=== PATIENT | female | born 1995 | race Caucasian/White ===

== ENCOUNTER → 2020-10-03 11:20 | Outpatient (BNVA) | payer MEDICAID, SELFPAY | PROVIDERS: Visit Provider Nurse Practitioner Family | DX: Z20.828 Contact with and (suspected) exposure to other viral communicable diseases (principal) | CPT/HCPCS: 87635 ==

== ENCOUNTER 2020-10-07 07:25 | Outpatient (CLI) | payer MEDICAID, SELFPAY ==
[2020-10-07] VITALS (8 sets, daily range): BP systolic 109–131; BP diastolic 59–74; PULSE 84–97; RESP 20; TEMP 36.8; BMI 53.4
[2020-10-07 08:46] LABS: Basophils % 0.2 %; Eosinophils # 0.1 10^3/uL (0.0-0.8); Eosinophils % 0.8 %; Hematocrit 37.2 % (37.0-47.0); Hemoglobin 11.8 g/dL (11.5-15.3); Lymphocytes # 1.7 10^3/uL (0.8-4.8); Lymphocytes % 14.9 %; Mean Corpuscular HGB Conc 31.7 g/dL (30.0-36.0); Mean Corpuscular Hemoglobin 28.9 pg (28.0-34.0); Mean Platelet Volume 10.7 fL (7.4-10.4); Monocytes # 0.7 10^3/uL (0.2-0.9); Monocytes % 6.3 %; Neutrophils # 8.63 10^3/uL (1.8-7.7); Neutrophils % 75.9 %; Nucleated Red Blood Cells % 0 %; Platelet Count 219 10^3/cmm (130-400); Red Blood Count 4.09 10^6/uL (4.1-5.3); Red Cell Distribution Width 14.6 % (12.1-15.1); White Blood Count 11.4 10^3/uL (4.0-10.0)
--- NOTE | 2020-10-07 08:58 | PC.NURSE ---
IV STARTED INN RIGHT HAND 2ND ATTEMPT, UNABLE TO DRAW BLOOD OFF SITE BUT IT FLUSHED GOOD SO IT WAS LEFT AND LABS DRAWN OFF RIGHT AC SPACE.
[2020-10-07 09:01] LABS: Alanine Aminotransferase 9 U/L (0-33); Albumin Level 3.2 g/dL (3.5-5.2); Alkaline Phosphatase 90 IU/L (35-105); Anion Gap 14.6 (5-19); Aspartate Amino Transferase 13 U/L (0-32); Blood Urea Nitrogen 7 mg/dL (6-20); Calcium 9.1 mg/dL (8.5-10.5); Carbon Dioxide 23 mmol/L (22-29); Chloride 101 mmol/L (98-107); Globulin 3.1 g/dL (1.3-4.6); Glomerular Filtration Rate 197.8 mL/min (90-130); Glucose 116 mg/dL (65-115); Osmolality Calculated 279 mOsm/kg (285-295); Potassium 3.6 mmol/L (3.5-5.1); Sodium 135 mmol/L (136-145); Total Bilirubin 0.3 mg/dL (0.15-1.2); Total Protein 6.3 g/dL (6.6-8.7)
[2020-10-07 09:02] LABS: Amphetamines Screen Urine Negative (Negative); Barbiturates Screen Urine Negative (Negative); Benzodiazepines Screen Urine Negative (Negative); Blood Urine Neg (Negative); Cocaine Screen Urine Negative (Negative); Glucose Urine UA Norm (Normal); Ketones Urine 1+ (Negative); Nitrate Urine Negative (Negative); Opiate Screen Urine Negative (Negative); PCP Screen Urine Negative (Negative); Protein Urine Trace (Negative); THC Screen Urine Negative (Negative); Urine Appearance SL Hazy (CLEAR); Urine Color Dark Yellow (Yellow); pH Urine 5 (5-7)
[2020-10-07 09:03] LABS: Add Urine Microscopic? YES; Bilirubin Urine 1+ (Negative); Leukocyte Esterase Urine Trace (Negative); Urobilinogen Urine 1 mg/dL (Negative)
[2020-10-07 09:04] LABS: Add Urine Culture? No; Bacteria Urine TRACE /hpf; Mucus Urine 3+ /hpf; Squamous Epithelial Cell Urine 0-4 /hpf (0-5)
[2020-10-07 09:06] LABS: Estmated Average Glucose 105; Hemoglobin A1C 5.3 % (4.0-6.0)
[2020-10-07 09:28] LABS: Urine Creatinine 312 mg/dL (28-217)
[2020-10-07 09:45] LABS: UPRO/UCREAT Ratio 0.13 mg/mg CR; Urine Protein Random 40 mg/dL
[2020-10-07 09:58] LABS: Glucose Point of Care 98 mg/dL (70-110)
[2020-10-07 10:46] LABS: Actim Prom Negative
--- NOTE | 2020-10-07 11:18 | PM.OBGYHP ---
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 Her care has been provided by Dr. Kd Maurice at [facility] in [place]. She presented to labor and delivery at 07:25 on 10/07/2020 with multiple complaints. She reported to the nursing staff that she was having severe headache, facial swelling, nausea, cough, and leaking fluid. The leaking of fluid had started approximately 2 days ago. At my evaluation, she reported the above listed symptoms. She stated that she had noticed a gush of fluid and then has had small gushes off and on with a damp feeling. She denied any vaginal itching or vaginal burning. She denied any urinary burning. She was reporting a stretching feeling whenever she urinated that has been present for a few days. She also reported having vomiting off and on throughout the , but vomited 1 time last night and was nauseated since. She states she took her prescribed Zofran last night and then fell asleep. Despite these above listed complaints, she reports that her main concern currently is that her back hurts all the time. She reported no fevers or chills. She denied vaginal bleeding. She reported having occasional contractions. She reported good movement. care has been provided by Dr. Kd Maurice at [facility] in [place]. Patient reports having problems with nausea and vomiting throughout the . She states she was diagnosed as a carrier of factor V Leiden mutation and is currently on Lovenox daily. She also reports being told that she might have gestational diabetes and has been checking her sugars at home. She reports that her after meal sugars range from 80s to 200s. She reported that she has an appointment tomorrow with her doctor. Review of Systems Const: Reports: fatigue; Denies: fever(s) or chills Eyes: Denies: change in vision ENMT: Denies: throat pain or nasal congestion Card: Reports: swelling of feet/ankles; Denies: chest pain, palpitations or lightheadedness Resp: Reports: non-productive cough; Denies: dyspnea, productive cough or wheezing GI: Reports: nausea and vomiting; Denies: abdominal pain, diarrhea or constipation : Reports: urinary frequency and vaginal discharge; Denies: dysuria, urinary urgency, genital pruritis or vaginal bleeding Musc: Reports: back pain Neuro: Reports: headache(s); Denies: dizziness or seizure-like activity Psych: Denies: anxiety or depression Yg/Lymph: Denies: easy bruising or easy bleeding Medications/Allergies Home Medications Medication Instructions Recorded Confirmed Last Taken Type Zofran PO TID PRN 10/07/20 1 Day Ago History ~10/06/20 enoxaparin [Lovenox] 40 mg SUBCUT DAILY 10/07/20 10/07/20 1 Day Ago History ~10/06/20 vit [id number] 1 tab PO DAILY 10/07/20 10/07/20 10/06/20 10:00 History [ Vitamin] Allergies Allergy/AdvReac Type Severity Reaction Status Date / Time atomoxetine [From Strattera] Allergy unknown Verified 10/03/20 10:43 methylphenidate Allergy Unknown Verified 10/03/20 10:43 [From Concerta] sulfamethoxazole Allergy Unknown Verified 10/03/20 10:44 [From Bactrim] trimethoprim [From Bactrim] Allergy Unknown Verified 10/03/20 10:44 PFSH 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 PFSH: Medical History (Updated 10/07/20 @ 11:56 by Karlos Kline MD) Factor 5 Leiden mutation, heterozygous History of venous thromboembolism Obesity Tobacco dependence Surgical History History of ankle surgery Hx of tonsillectomy Family History Mother Diabetes Stroke Chronic kidney disease (CKD) Father Hypertension Social History (Updated 10/07/20 @ 11:45 by Karlos Kline MD) Smoking and tobacco status: current every day smoker Alcohol intake: current Alcohol use comment: Not during Substance/Drug Use: unknown Housing: Other Details: [facility] History History History 5 Term 1 Miscarriages/Ectopic 3 0 Living Children 1 Care [place] Calculator Estimated Delivery Date Method Current WG Current Estimate 11/26/20 LMP (Certain) 32w 6d Specific Issues/Plans Factor V Leiden mutation with history of DVT. Obesity Abnormal glucose test Vitals/I&O/Wt Last Vital Signs Pulse 84 10/07/20 09:42 BP 123/63 10/07/20 09:42 Weight last 48 hrs Weight 302 lb Physical Exam Const: COMMON NORMALS: no acute distress, alert and well nourished GENERAL APPEARANCE: well developed NUTRITIONAL APPEARANCE: obese ORIENTATION/CONSCIOUSNESS: Yes oriented to person, Yes oriented to place and Yes oriented to time Neck/C-Spine: COMMON NORMALS: Thyroid normal GENERAL: Yes trachea midline THYROID: Thyroid normal Lymph: LYMPHATIC: no lymphadenopathy noted (Groin) Resp: COMMON NORMALS: normal respiratory effort and clear to auscultation bilaterally AUSCULTATION: clear to auscultation bilaterally Cardio: COMMON NORMALS: regular rate, regular rhythm, No gallops present (Cardio), No murmurs present (Cardio) and No rub (Cardio) RATE: regular rate RHYTHM: regular rhythm GI: COMMON NORMALS: Soft to palpation, non-tender, No hepatosplenomegaly present and no masses (Except for nontender gravid uterus) INSPECTION: Yes gravid abdomen AUSCULTATION: Yes normoactive bowel sounds PALPATION: Yes Soft to palpation, Yes No hepatosplenomegaly present and No Hernia present : EXTERNAL FEMALE EXAM: No Hernia present OTHER: External genitalia: Slight erythema. No lesions seen. Skin damp. Smell of sour urine noted. Anus/perineum: No perineal lesions noted. Urethral meatus: Normal in size and location with no lesions or prolapse noted Urethra: Nontender. Bladder: Nontender. Vagina: Normal in appearance. No discharge noted. No lesions seen. Negative pooling. Nitrazine positive. Fern test performed. Wet prep performed. Cervix: Normal in appearance. No lesions seen. No fluid seen leaking from cervix with cough. Visually closed. Gonorrhea and Chlamydia testing performed. Uterus: Gravid and nontender. Extremity: COMMON NORMALS: no calf tenderness NARRATIVE EXTREMITY EXAM: Trace lower extremity edema bilaterally Neuro: SENSORIUM/ORIENTATION: Yes alert, Yes oriented to person, Yes oriented to place and Yes oriented to time Psych: COMMON NORMALS: normal affect MOOD & AFFECT: Yes euthymic mood Skin: COMMON NORMALS: no rashes or lesions noted GENERAL SKIN EXAM: no rashes or lesions noted Data : 10/07/20 08:30 10/07/20 08:30 Other Labs: 10/07/2020: 08:30 Calcium 9.1, T bili 0.3, AST 13, ALT 9, alk phos 90, TP 6.3, Alb 3.2. Serum uric acid: 4.0 Nitrazine: Positive Fern test: Equivocal Wet prep: Negative for yeast, clue cells, trichomonas. Occasional WBCs present. ActinProm: Negative Urinalysis (catheterized): Specific gravity 1.030, protein trace, glucose negative, ketones 1+, blood negative, nitrate negative, leukocyte esterase trace. RBC: None, WBC 5-10, squamous cells 0-4, bacteria trace. Protein/Creatinine Ratio: 0.13 Urine drug screen: Negative PENDING TESTS Urine culture: Pending Gonorrhea and Chlamydia: Pending Other data: Monitoring: Baseline heart rate 125-130, moderate variability, accelerations present, reactive tracing. No decelerations. Category 1 tracing. No contractions. A&P Assessment and plan (1) Headache in : Patient complaining of headache with facial swelling and nausea. Blood pressure in labor and delivery was normal. Preeclamptic laboratory testing was performed. CBC was normal for with platelets of 219,000. Liver enzymes were normal. Serum uric acid was normal at 4.0. Urine protein/creatinine ratio was 0.13. Based upon these laboratory findings and the normal blood pressure, she does not have preeclampsia as a cause for her headache. I would recommend taking Tylenol as needed and increasing fluid intake. I would recommend that she follow-up with her doctor as scheduled tomorrow to see if he wishes any further evaluation. Status: Acute Qualifiers: Trimester: third trimester Qualified Code(s): O26.893 - Other specified related conditions, third trimester; R51.9 - Headache, unspecified (2) Vaginal discharge during in third trimester: Patient reporting possible leaking of fluid for the last 2 days. External genitalia was damp on exam with sour urine odor present. Sterile speculum exam revealed no pooling with no fluid leaking from cervix with cough. Nitrazine was positive. Fern testing was performed which was equivocal. ActinPROM was performed which was negative. Wet prep was performed which was negative for yeast, bacterial vaginosis, and trichomoniasis. Gonorrhea and Chlamydia testing was performed. Based upon testing, I do not believe that her water is broken at this time. However, if she continues to have concerns for possible leaking of fluid, she will need to be reevaluated. Based upon odor, I suspect she has been leaking urine. Status: Acute (3) Acute cystitis during in third trimester: Catheterized urine sample was obtained. Based upon UA, she may have a cystitis. She had 5-10 WBCs with trace bacteria. Urine culture has been ordered. Due to the increased risks associated with cystitis in if present, I am going ahead and treating with cephalexin 500 twice a day for 7 days while urine culture is pending. Status: Acute (4) Abnormal glucose tolerance test in : Patient reports abnormal glucose test. States has been checking sugars at home, but has not followed up with her doctor yet regarding sugar results. She was instructed to take her readings with her to her doctor's appointment tomorrow. Status: Acute (5) Heterozygous factor V Leiden affecting in third trimester, antepartum: Patient currently taking Lovenox prophylactically. Status: Acute (6) Nausea/vomiting in : Patient reported having nausea and vomiting yesterday, but states that that she has had problems with this through the and has Zofran prescription at home which she took. Status: Acute (7) 32 weeks gestation of : Status: Acute Additional A&P Information Patient is being discharged to home. She is to keep her next scheduled appointment, which is tomorrow, with her main OB doctor, Dr. Kd Maurice at [facility] in [place]. She was instructed to continue her home medications which include: Lovenox 40 mg daily vitamins daily Zofran as needed for nausea and vomiting She was given a prescription for: Cephalexin 500 mg, 1 twice a day for 7 days Attestations Medical Necessity Statement*: Patient being sent home after evaluation Coding Level of Care Code Acute Access Analyst for Misael Fwd Exam Comprehensive Diagnoses Headache in O26.893; R51.9 Trimester: third trimester Vaginal discharge during in third trimester O26.893; N89.8 Acute cystitis during in third trimester O23.13 Abnormal glucose tolerance test in O99.810 Heterozygous factor V Leiden affecting in third trimester, antepartum O99.113; D68.51 Nausea/vomiting in O21.9 32 weeks gestation of Z3A.32
== END 2020-10-07 11:15 | disposition home or self-care (01) ==
LOC: OPOB 07:34 → OBGYN 07:34
PROVIDERS: Obstetrics & Gynecology; Visit Provider Obstetrics & Gynecology
DX: O26.893 Other specified pregnancy related conditions, third trimester (principal); Z3A.32 32 weeks gestation of pregnancy; R51.9 Headache, unspecified; O23.13 Infections of bladder in pregnancy, third trimester; O99.810 Abnormal glucose complicating pregnancy; O99.113 Other diseases of the blood and blood-forming organs and certain disorders involving the immune mechanism complicating pregnancy, third trimester; D68.51 Activated protein C resistance; O21.9 Vomiting of pregnancy, unspecified
CPT/HCPCS: 12345; 36415; 36416; 59025; 80053; 80306; 81001; 82570; 82962; 83036; 83986; 84112; 84156; 84550; 85025; 87491; 87591; 99211

== ENCOUNTER → 2021-03-04 15:00 | Outpatient (BNVA) | payer MEDICAID, SELFPAY | PROVIDERS: PCP Family Medicine; Referring Provider Family Medicine; Visit Provider Specialist | DX: G56.01 Carpal tunnel syndrome, right upper limb (principal); F17.210 Nicotine dependence, cigarettes, uncomplicated | CPT/HCPCS: 95908 ==

== ENCOUNTER 2023-04-10 21:02 | Emergency (ER) | payer MEDICAID, SELFPAY ==
[2023-04-10 21:13] VITALS: BP 177/106; PULSE 104; RESP 16; TEMP 37.6; O2SAT 96; BMI 51.5
--- NOTE | 2023-04-10 23:06 | ED_ITS ---
HPI - Skin/Abscess/Foreign Bdy General: Chief complaint: Skin/Abscess/Foreign Body Stated complaint: Absess on Chest and Under Arms Time Seen by Provider: 04/10/23 23:01 History of Present Illness: Patient is a 27-year-old female who comes to the ED with possible infected bug bite on right breast. Patient says it started approximately 1 week ago. She had a small sore bump on the top of her right breast which she thinks was first bug bite. Over the last week it is gotten more painful red and swollen. The center area of bug bite has had a little bit of green and white purulent drainage. It is warm and tender to the touch. Denies any fevers or any other symptoms. Associated symptoms: Deny chills, fever(s), nausea or vomiting Review of Systems Const: Denies: fever(s), chills or fatigue Eyes: Denies: change in vision or eye discomfort ENMT: Denies: throat pain, odynophagia, nasal discharge or nasal congestion Card: Denies: chest pain, palpitations, edema, swelling of feet/ankles, dyspnea on exertion or orthopnea Resp: Denies: dyspnea, productive cough or non-productive cough GI: Denies: abdominal pain, nausea, vomiting, diarrhea, constipation or hematochezia : Denies: flank pain, dysuria or hematuria Musc: Denies: neck pain, back pain or extremity swelling Skin/Breast: Reports: new lesions (Bug bite on right breast); Denies: rash Neuro: Denies: headache(s), numbness in extremities or weakness in extremities PFS ED PFSH: Medical History (Updated 04/10/23 @ 23:11 by KAMI Garcia) Factor 5 Leiden mutation, heterozygous History of venous thromboembolism Obesity Tobacco dependence Surgical History History of ankle surgery Hx of tonsillectomy Family History Mother Diabetes Stroke Chronic kidney disease (CKD) Father Hypertension Social History (Updated 10/07/20 @ 11:45 by Karlos Kline MD) Smoking and tobacco status: current every day smoker Alcohol intake: current Substance/Drug Use: unknown Housing: Other Details: [facility] Female Reproductive History: Date of last menstrual period: 04/10/23 Physical Exam Const: COMMON NORMALS: no acute distress, patient oriented x3 and alert HENMT: COMMON NORMALS: normocephalic HEAD & SCALP: normocephalic MOUTH: Normal oral and palatal mucosa present THROAT: posterior oropharynx normal and uvula midline Neck/C-Spine: COMMON NORMALS: supple GENERAL: Yes normal visual inspection Chest: OTHER: On superior aspect of right breast. Patient has small bug bite appearing puncture wound with surrounding erythema and warmth. No visible purulent drainage seen. No palpable abscess present. Findings suggestive of developing cellulitis from a bug bite. Resp: COMMON NORMALS: normal respiratory effort, No retractions, No use of accessory muscles and clear to auscultation bilaterally AUSCULTATION: clear to auscultation bilaterally Cardio: COMMON NORMALS: regular rate, regular rhythm, S1 normal heart sound present, S2 normal heart sound present, No gallops present (Cardio), No clicks present (Cardio), No murmurs present (Cardio) and Peripheral pulses 2+ throughout RATE: regular rate RHYTHM: regular rhythm HEART SOUNDS: S1 normal heart sound present and S2 normal heart sound present PERIPHERAL PULSES: Peripheral pulses 2+ throughout GI: COMMON NORMALS: Normal to inspection, nondistended, normoactive bowel sounds present, Soft to palpation, non-tender and no masses PALPATION: Yes Soft to palpation : COMMON NORMALS: Yes no CVA tenderness BLADDER/KIDNEY EXAM: Yes no CVA tenderness Back/Pelvis: COMMON NORMALS: no CVA tenderness Extremity: COMMON NORMALS: normal to inspection Neuro: COMMON NORMALS: patient oriented x3 SENSORIUM/ORIENTATION: Yes alert GAIT: Yes Normal gait present Skin: GENERAL SKIN EXAM: dry skin Course Vital Signs: Vital signs: Vital Signs Temperature 99.7 F H 04/10/23 21:13 Pulse Rate 104 H 04/10/23 21:13 Respiratory Rate 16 04/10/23 21:13 Blood Pressure 177/106 04/10/23 21:13 Pulse Oximetry 96 04/10/23 21:13 Oxygen Delivery Me thod Room Air 04/10/23 21:13 MDM - Skin/Abscess/Foreign Bdy Medicial Decision Making Patient is a 27-year-old female who comes to the ED with possible infected bug bite on right breast. Patient says it started approximately 1 week ago. She had a small sore bump on the top of her right breast which she thinks was first bug bite. Over the last week it is gotten more painful red and swollen. The center area of bug bite has had a little bit of green and white purulent drainage. It is warm and tender to the touch. Denies any fevers or any other symptoms. Vitals are stable. Patient appears nontoxic in no acute distress. On superior aspect of right breast. Patient has small bug bite appearing puncture wound with surrounding erythema and warmth. No visible purulent drainage seen. No palpable abscess present. Findings suggestive of developing cellulitis from a bug bite. Patient was given dose of IM Rocephin here in the ED and diagnosed with infected bug bite. She was sent home with a prescription for Keflex. Told to follow-up with PCP within the next 3 to 5 days for reevaluation. Return to ED precautions given. Patient understood and agreed with plan. Discharge Plan Discharge Patient Disposition: Home Clinical Impression: Bug bite with infection Qualifiers: Encounter type: initial encounter Qualified Code(s): W57.XXXA - Bitten or stung by nonvenomous insect and other nonvenomous arthropods, initial encounter Condition: Stable Prescriptions: New cephalexin 500 mg capsule 500 mg PO Q6H 7 Days Qty: 28 0RF No Action amoxicillin 500 mg tablet 500 mg PO TID Qty: 15 0RF gabapentin 100 mg capsule 100 mg PO BID Qty: 28 0RF Vitamin 27 mg iron- 800 mcg Tablet 1 tab PO DAILY Discharge Orders: Discharge ED (Routine); Ordered 04/10/23 Ordered By: Jacob Garcia Referrals: Stephanie Goldstein MD [Primary Care Provider] - Discharge Diet: Regular Discharge Activity: Increase activity as tolerated Patient Instructions: Cellulitis (ED) Activity Restrictions/Additional Instructions: Follow-up with medical provider as directed in the next 3 to 4 days for reevaluation. take medications as prescribed. Return to the ER or your medic al provider if condition worsens. Please read and understand discharge instructions. Thank you for choosing [facility] for your healthcare needs today. Please realize this is an emergency room and that we are providing you with a medical screening exam and this may not be complete and all inclusive of all the testing and or work up that you may need to determine your ailment or severity o f your illness. It is very important that you follow up as instructed or that you return to the Emergency Department should you have concerns or if your condition changes or worsens in any way. Coding Level of Care Code ED Disaster Recovery Consultant for Misael Pastor
[2023-04-10] MEDS: cefTRIAXone 1,000 MG in water for injection-sterile 2.1 ML 1 MG IM (23:16)
== END 2023-04-10 23:54 | disposition home or self-care (01) ==
PROVIDERS: Emergency Provider Physician Assistant; PCP Family Medicine
DX: S20.161A Insect bite (nonvenomous) of breast, right breast, initial encounter (principal); L08.9 Local infection of the skin and subcutaneous tissue, unspecified; W57.XXXA Bitten or stung by nonvenomous insect and other nonvenomous arthropods, initial encounter; F17.210 Nicotine dependence, cigarettes, uncomplicated
CPT/HCPCS: 96372; 99284; J0696

== ENCOUNTER 2023-05-09 20:42 | Emergency (ER) | payer MEDICAID, SELFPAY ==
[2023-05-09 20:44] VITALS: BP 132/74; PULSE 102; RESP 22; TEMP 36.6; O2SAT 97; BMI 51.5
[2023-05-09 21:32] LABS: Hematocrit 42.2 % (37.0-47.0); Hemoglobin 13.5 g/dL (11.5-15.3)
--- NOTE | 2023-05-09 22:42 | ED_ITS ---
HPI - Female Genitourinary General: Chief complaint: Vaginal Bleeding Stated complaint: vaginal bleeding History of Present Illness: Patient is a 28-year-old female that presents for vaginal bleeding. She is a G7, P4 with 3 previous miscarriages. Patient states she had unprotected sex 7 weeks ago. She has not taken any home test. Her last documented menstrual period was 01/10/2023 Patient states that she was on the commode when she felt a gush and then splash into the toilet Patient states she had a very large blood clot mode. Patient does report some abdominal cramping and vaginal pain Patient reports a history of factor V Leiden and VTE Associated symptoms: Reports vaginal bleeding; Deny abdominal pain, headache(s) or nausea Date of Last Menstrual Period: 01/10/23 Review of Systems General: Reports: 10 or more systems reviewed and unremarkable except in HPI and below Const: Denies: fever(s), chills, change in appetite, change in weight, fatigue or malaise Eyes: Denies: change in vision, eye discomfort, eye discharge or eye redness ENMT: Denies: throat pain, enlarged tonsils, odynophagia, hoarseness, ear or mastoid pain, ear discharge, change in hearing, tinnitus, nasal discharge, nasal congestion, post nasal drip or sinus pain Card: Denies: chest pain, palpitations, irregular heart rhythm, edema, dyspnea on exertion, orthopnea or leg pain with exertion Resp: Denies: dyspnea, productive cough, non-productive cough, wheezing, stridor or chest congestion GI: Denies: abdominal pain, nausea, vomiting, dysphagia, diarrhea, constipat ion, bloating, GI cramping or hematochezia : Reports: vaginal bleeding, dysmenorrhea and irregular period; Denies: flank pain, difficulty voiding, dysuria, urinary frequency, urinary urgency, urinary hesitancy, oliguria or hematuria Musc: Denies: neck pain, back pain, extremity pain, joint pain, joint swelling, joint redness, joint warmth or muscle weakness Skin/Breast: Denies: rash, pruritus, erythema, photosensitivity or new lesions Neuro: Denies: headache(s), numbness in extremities, weakness in extremities, sensory changes, lack of coordination, difficulty walking, frequent falls, dizziness, confusion, Slurred speech present, difficulty communicating thoughts, seizure-like activity or involuntary movements Endo: Denies: polyuria, polydipsia or tired all the time Yg/Lymph: Denies: easy bruising or easy bleeding PFSH ED PFSH: Medical History (Updated 05/09/23 @ 23:38 by GEREMIAS Sunshine) Factor 5 Leiden mutation, heterozygous History of venous thromboembolism Obesity Tobacco dependence Surgical History History of ankle surgery Hx of tonsillectomy Family History Mother Diabetes Stroke Chronic kidney disease (CKD) Father Hypertension Social History (Updated 10/07/20 @ 11:45 by Karlos Kline MD) Smoking and tobacco status: current every day smoker Alcohol intake: current Substance/Drug Use: unknown Housing: Other Details: [facility] Female Reproductive History: Date of last menstrual period: 01/10/23 Physical Exam Const: COMMON NORMALS: no acute distress, patient oriented x3 and alert GENERAL APPEARANCE: cooperative ORIENTATION/CONSCIOUSNESS: Yes awake, Yes oriented to person, Yes oriented to place and Yes oriented to time HENMT: COMMON NORMALS: normocephalic and atraumatic HEAD & SCALP: normocephalic and atraumatic FACE & SINUS: normal facial exam MOUTH: Normal oral and palatal mucosa present THROAT: posterior oropharynx normal Eye: COMMON NORMALS: Equal, round and reactive pupils present, EOMs intact bilaterally, conjunctivae normal and no scleral icterus GENERAL EYE: appearance normal, both eyes and all related structures ALIGNMENT: Yes alignment normal PERIORBITAL: periorbital findings normal CONJUNCTIVA: Yes conjunctivae normal PUPIL: Yes Equal, round and reactive pupils present Neck/C-Spine: COMMON NORMALS: full ROM GENERAL: Yes normal visual inspection Lymph: LYMPHATIC: no lymphadenopathy noted Chest: COMMONS NORMALS: normal inspection of the chest Breast/axilla inspection: Yes no chest deformity, asymmetry, normal contours, no nodules, masses, tenderness Resp: COMMON NORMALS: normal respiratory effort, No retractions, No use of accessory muscles and clear to auscultation bilaterally EFFORT & INSPECTION: Yes able to speak in complete sentences and Yes symmetric chest movement AUSCULTATION: clear to auscultation bilaterally Cardio: COMMON NORMALS: regular rate, regular rhythm and Peripheral pulses 2+ throughout RATE: regular rate RHYTHM: regular rhythm PERIPHERAL PULSES: Peripheral pulses 2+ throughout GI: COMMON NORMALS: Normal to inspection, nondistended, normoactive bowel sounds present, Soft to palpation, non-tender and No hepatosplenomegaly present INSPECTION: Yes normal to inspection AUSCULTATION: Yes normoactive bowel sounds PALPATION: Yes Soft to palpation and Yes No hepatosplenomegaly present RECTAL EXAM: deferred : EXTERNAL FEMALE EXAM: Yes normal appearance of the urethra SPECULUM EXAM - VAGINA: Yes vaginal bleeding Amount: medium/moderate SPECULUM EXAM - CERVIX: Yes Cervical os closed, No Tissue present in the cervical os, No Cervical bleeding and Yes Abnormal cervical discharge present OB/EXTERNAL & SPECULUM: vaginal bleeding Extremity: COMMON NORMALS: normal to inspection GENERAL: Yes normal exam except as noted Neuro: COMMON NORMALS: patient oriented x3 SENSORIUM/ORIENTATION: Yes alert, Yes oriented to person, Yes oriented to place and Yes oriented to time CRANIAL NERVES: Yes CN normal except as noted Psych: COMMON NORMALS: mental status grossly normal, Normal thought process present, cooperative, activity/motor behavior normal, denies homicidal ideation and denies suicidal ideation THOUGHT PROCESS: Normal thought process present Skin: COMMON NORMALS: no rashes or lesions noted, no wounds and turgor normal GENERAL SKIN EXAM: no rashes or lesions noted and turgor normal Course Vital Signs: Vital signs: Vital Signs Temperature 98.1 F 05/09/23 22:58 Pulse Rate 90 05/09/23 22:58 Respiratory Rate 18 05/10/23 00:11 Blood Pressure 139/96 05/09/23 22:58 Pulse Oximetry 98 05/10/23 00:11 Oxygen Delivery Me thod Room Air 05/09/23 20:44 [facility] - Female Medical Decision Making Was evaluated in the emergency department due to concerns for vaginal bleeding. Differential diagnosis includes with miscarriage or threatened miscarriage, menstrual cycle, vaginal trauma,. Patient underwent laboratory evaluation to rule out . Her hCG quant was 1?not . Hemogram revealed no acute anemia. Patient and I discussed findings and did not warrant an ultrasound. Did do a vaginal exam which showed a closed os with moderate amount of vaginal bleeding. 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 She say s that she has had unprotected sex and is at risk for a STI. I went ahead and treated her but sent cultures off. The treatment included IM Rocephin, 1 g p.o. azithromycin, and I will be sending her home on a weeks worth of Flagyl. Patient is also requested a new OB. I am sending an order to case management to help with [facility] referral. Lab Data 05/09/23 21:19 Laboratory Results Hgb 13.5 g/dL (11.5-15.3) 05/09/23 21:19 Hct 42.2 % (37.0-47.0) 05/09/23 21:19 Ser , Semi-Qnt 1.00 mIU/mL 05/09/23 21:19 Urine Color Yellow (Yellow) 05/09/23 22:32 Urine Appearance Cloudy (CLEAR) A 05/09/23 22:32 Urine pH 6 (5-7) 05/09/23 22:32 Ur Specific [place] 1.020 (1.005-1.030) 05/09/23 22:32 Urine Protein Trace (Negative) 05/09/23 22:32 Urine Glucose (UA) Norm (Normal) 05/09/23 22:32 Urine Ketones Negative (Negative) 05/09/23 22:32 Urine Blood 3+ (Negative) H 05/09/23 22:32 Urine Nitrate Negative (Negative) 05/09/23 22:32 Urine Bilirubin Neg (Negative) 05/09/23 22:32 Urine Urobilinogen Norm mg/dL (Negative) 05/09/23 22:32 Ur Leukocyte Esterase Trace (Negative) H 05/09/23 22:32 Urine RBC >100 /hpf (0-2) H 05/09/23 22:32 Urine WBC 0-4 /hpf (0-5) H 05/09/23 22:32 Ur Squamous Epith Cells 0-4 /hpf (0-5) H 05/09/23 22:32 Amorphous Sediment Not Reportable 05/09/23 22:32 Urine Bacteria Trace /hpf (NONE) 05/09/23 22:32 Urine Mucus 1+ /hpf 05/09/23 22:32 Blood Type O Positive 05/09/23 21:19 Rho(D) Type Positive 05/09/23 21:19 Discharge Plan Discharge Patient Disposition: Home Clinical Impression: Vaginal bleeding Condition: Stable Prescriptions: New metronidazole 500 mg tablet 500 mg PO BID 7 Days Qty: 14 0RF No Action amoxicillin 500 mg tablet 500 mg PO TID Qty: 15 0RF gabapentin 100 mg capsule 100 mg PO BID Qty: 28 0RF Vitamin 27 mg iron- 800 mcg Tablet 1 tab PO DAILY Discharge Orders: Discharge ED (Routine); Ordered 05/10/23 Ordered By: Marylu Mulligan Referrals: Stephanie Goldstein MD [Primary Care Provider] - Discharge Diet: Advance as tolerated Discharge Activity: Resume usual activity Patient Instructions: Menorrhagia (ED), Vaginal Discharge (ED), Pain Management Activity Restrictions/Additional Instructions: A referral has been sent for case management to assist in getting new [employer] care Please return to the emergency department for new concerning or worsening symptoms Coding Level of Care Code ED Eligibility And Occupancy Interviewer for Misael Pastor
[2023-05-09 22:58] VITALS: BP 139/96; PULSE 90; RESP 18; TEMP 36.7; O2SAT 97
[2023-05-09 23:34] LABS: Glucose Urine UA Norm (Normal); Ketones Urine Negative (Negative); Protein Urine Trace (Negative); Urine Appearance Cloudy (CLEAR); Urine Color Yellow (Yellow); pH Urine 6 (5-7)
[2023-05-09 23:35] LABS: Add Urine Microscopic? YES; Bilirubin Urine Neg (Negative); Blood Urine 3+ (Negative); Leukocyte Esterase Urine Trace (Negative); Nitrate Urine Negative (Negative); Urobilinogen Urine Norm (Negative)
[2023-05-09] MEDS: azithromycin 250 mg Tablet 1000 MG PO (23:37)
[2023-05-09] MEDS: metroNIDAZOLE 500 MG Tablet PO (23:37)
[2023-05-09] MEDS: cefTRIAXone 500 MG in water for injection-sterile 1 ML IM (23:38)
[2023-05-09 23:39] LABS: Mucus Urine 1+ /hpf; RBC Urine >100 /hpf (0-2); Squamous Epithelial Cell Urine 0-4 /hpf (0-5); WBC Urine 0-4 /hpf (0-5)
[2023-05-09 23:40] LABS: Add Urine Culture? Yes; Bacteria Urine TRACE /hpf
[2023-05-10 00:11] VITALS: RESP 18; O2SAT 98
[2023-05-10 01:15] VITALS: PULSE 79; RESP 18; O2SAT 98
--- NOTE | 2023-05-11 07:52 | DCPLANNER ---
Addendum entered by Theresa Tucker 05/20/23 10:27: Patient had a follow up appointment scheduled with [facility] - patient did not attend appointment Original Note: project product manager had message to schedule a follow up appointment for patient with OB /DESIGN [facility]CHIT[facility]. project product manager sent patients information to the front office staff at [facility]. Patients information will be printed and reviewed. Clinic will call patient with appointment information.
[2023-05-11 17:49] LABS: Chlamydia Trachomatis RNA TMA NOT DETECTED (NOT DETECTED); Neisseria Gonorrhoeae RNA, TMA NOT DETECTED (NOT DETECTED)
== END 2023-05-10 01:17 | disposition home or self-care (01) ==
PROVIDERS: Emergency Medicine; Emergency Provider Nurse Practitioner; PCP Family Medicine
DX: N93.9 Abnormal uterine and vaginal bleeding, unspecified (principal); D68.51 Activated protein C resistance; F17.210 Nicotine dependence, cigarettes, uncomplicated
CPT/HCPCS: 36415; 81001; 84702; 85014; 85018; 86900; 87070; 87086; 87205; 87210; 87491; 87591; 96372; 99284; J0696; Q0144